=== PATIENT | female | born 1980 | race Caucasian/White ===

== ENCOUNTER 2018-11-01 09:56 | Outpatient (CLI) | payer OTHER, SELFPAY ==
[2018-11-01 11:52] LABS: Anion Gap 9.7 mmol/L (3-11); BUN 10 mg/dL (7-18); CO2 28.3 mmol/L (21.0-32.0); CREATININE 0.79 mg/dL (0.55-1.02); Calcium 9.2 mg/dL (8.5-10.1); Chloride 103 mmol/L (98-107); FREE T4 1.19 ng/dL (0.76-1.46); Glucose 85 mg/dL (70-100); Potassium 4.4 mmol/L (3.5-5.1); Sodium 141 mmol/L (136-145); TSH 1.96 uIU/mL (0.358-3.74)
== END 2018-11-01 10:16 ==
PROVIDERS: PCP Family Medicine; Visit Provider Nurse Practitioner Family
DX: E03.9 Hypothyroidism, unspecified (principal)
CPT/HCPCS: 36415; 80048; 84439; 84443

== ENCOUNTER 2019-06-15 16:19 | Emergency (ER) | payer OTHER, SELFPAY ==
[2019-06-15 16:25] VITALS: BP 145/79; PULSE 66; RESP 18; TEMP 36.4; O2SAT 100
--- NOTE | 2019-06-15 16:39 | ED.GENADUL_ITS ---
Discharge Plan Disposition Patient Disposition: HOME Condition: Stable Discharge Details Chief Complaint: Nk/Back Pain Clinical Impression: Cervical strain Primary Care Provider: Sisi Goins ED Provider: Flo Mcrae Home Meds and New Rx's Prescriptions: New cyclobenzaprine 10 mg tablet 10 mg PO TID PRNQty: 20 RF: 0 Continued minocycline 100 mg capsule 100 mg PO BID Qty: 14 RF: 3 metronidazole [MetroCream] 0.75 % cream 1 applic TP BID Qty: 45 RF: 3 levothyroxine 100 mcg tablet 100 mcg PO DAILY Qty: 90 RF: 4 Discharge Instructions Instructions: Cervical Strain (ED) Additional Instructions: You can take 1000mg tylenol and 600mg ibuprofen every 6 hours if you take a flexeril (cyclobenzaprine) do not drink alcohol or operate heavy machinery follow up as scheduled with your primary care provider Thursday if you have severe worsening pain, numbness or weakness return to the emergency department Medical Decision Making 38 yo female comes in with neck pain. She states it started Thursday after she had several falls while cross country skiing and landed on her buttocks. Denies hitting head or loc. Has pain in the left lateral neck, no fevers, weakness or numbness and has no weakness or sesation deficits on exam. She has pain in mid left neck lateral to midline, no midline tenderness of C/T/L spine. Limited rom due to pain. Suspect strain based on mechanism and location but discussed can't exclude fracture based on history and physical exam, and after discussion patient chooses to defer CT imaging at this time after discussion of risks and benefits and has capacity to make her own decisions. She has f/u with pcp on Thursday and if still having pain will discuss MRI, return precautions also given Differential Diagnosis Differential Diagnosis: strain, sprain, disc herniation, fracture HPI General Mode of arrival: ambulatory . Date/Time Provider Initiated Documentation: 06/15/19 16:19 . Limitations to Documentation: no limitations . Information obtained by: patient . History of Present Illness 38 year old F presents to the emergency department with the chief complaint of neck pain, described as moderate, and it has been constant. Rest improves symptom(s), Movement worsens symptoms . Patient notes no other symptoms.. Related Data Home Medications Medication Instructions Recorded Confirmed levothyroxine 100 mcg tablet 100 mcg PO DAILY #90 tab-cap 11/02/18 06/15/19 metronidazole 0.75 % topical cream 1 applic TP BID #45 gm 11/17/18 06/15/19 minocycline 100 mg capsule 100 mg PO BID #14 cap 11/17/18 06/15/19 cyclobenzaprine 10 mg PO TID PRN #20 tab 06/15/19 Previous Rx's Medication Instructions Recorded levothyroxine 100 mcg tablet 100 mcg PO DAILY #90 tab-cap 11/02/18 metronidazole 0.75 % topical cream 1 applic TP BID #45 gm 11/17/18 minocycline 100 mg capsule 100 mg PO BID #14 cap 11/17/18 cyclobenzaprine 10 mg PO TID PRN #20 tab 06/15/19 Allergies Allergy/AdvReac Type Severity Reaction Status Date / Time No Known Allergies Allergy Unverified 06/15/19 16:30 General Stated Complaint: Nk/Back Pain THOR: 4 Review of Systems All systems reviewed & are unremarkable except as noted in HPI and below Constitutional Constitutional: Denies chills, Denies fever(s) and Denies weakness Gastrointestinal Gastrointestinal: Denies vomiting Neurologic Neurologic: Denies weakness [facility] Surgical History (Updated 10/27/18 @ 08:46 by Beni Martins) Thyroid 5 nodules Family History Mother Personal history of malignant neoplasm UTERINE Father MS (multiple sclerosis) Sister Personal history of malignant neoplasm THYROID Brother Essential hypertension Grandmother Essential hypertension Personal history of malignant neoplasm B-CELL LYMPHOMA Social History Smoking/Tobacco Use Status: Never Alcohol Intake: current Alcohol Intake frequency: holidays/special occasions only Drug use: Never Substance use type: does not use Do you feel safe at home: Yes Do you feel safe in your relationship?: Yes Exam Const General: no acute distress Orientation: alert HENMT Head: normal to inspection Ears: external ears normal General nose exam: external nose normal Mouth: moist mucous membranes Eyes General: appearance normal, both eyes and all related structures Neck Neck: normal visual inspection Resp Effort & Inspection: normal respiratory effort and able to speak in complete sentences Cardio Rate: regular rate Neuro General: alert and oriented x3 Extrem General: normal to inspection Psych Mental Status: mental status grossly normal Course Vital Signs Vital signs: Vital Signs Temperature 36.4 C L 06/15/19 16:25 Pulse 66 06/15/19 16:25 Respiratory Rate 18 06/15/19 16:25 Blood Pressure 145/79 H 06/15/19 16:25 Pulse Oximetry 100 06/15/19 16:25 Temperature 36.4 C L 06/15/19 16:25 Temperature Source Skin 06/15/19 16:25 Pulse 66 06/15/19 16:25 Respiratory Rate 18 06/15/19 16:25 Respiratory Effort Non-Labored 06/15/19 16:29 Blood Pressure 145/79 H 06/15/19 16:25 Pulse Oximetry 100 06/15/19 16:25 Oxygen Delivery Method Room Air 06/15/19 16:25 Oxygen Flow Rate 0 06/15/19 16:25 Pain Level 3 06/15/19 16:25
== END 2019-06-15 16:45 | disposition home or self-care (01) ==
PROVIDERS: Emergency Provider Emergency Medicine; PCP Family Medicine
DX: S16.1XXA Strain of muscle, fascia and tendon at neck level, initial encounter (principal); V00.321A Fall from snow-skis, initial encounter; Y93.24 Activity, cross country skiing
CPT/HCPCS: 99283

== ENCOUNTER 2019-06-20 09:47 | Outpatient (CLI) | payer OTHER, SELFPAY ==
[2019-06-20 12:28] LABS: HCT 39.6 % (36.0-46.0); HGB 13.2 g/dL (12.0-15.5); Mean Corp. HGB Concentration 33.3 g/dL (32.0-36.0); Mean Corpuscular Hemoglobin 30.3 pg (27.0-33.0); Mean Platelet Volume 10.4 fL (8.0-11.0); Platelet Count 294 x1000/uL (130-400); RBC 4.35 m/cumm (4.00-5.20); RBC Distribution Width 12.3 % (11.7-14.6); White Blood Cell Count 5.02 k/cumm (4.4-10.8)
[2019-06-20 13:35] LABS: ALT 18 U/L (14-59); AST 14 U/L (15-37); Alkaline Phosphatase 50 U/L (46-116); Anion Gap 6.5 mmol/L (3-11); BUN 8 mg/dL (7-18); Bilirubin, Total 0.5 mg/dL (0.2-1.0); CO2 31.5 mmol/L (21.0-32.0); CREATININE 0.74 mg/dL (0.55-1.02); Calcium 8.9 mg/dL (8.5-10.1); Calculated LDL 97 mg/dL (<100); Chloride 104 mmol/L (98-107); Cholesterol 175 mg/dL (<200); Glucose 82 mg/dL (74-106); HDL Cholesterol 61 mg/dL (40-60); Iron 80 ug/dL (50-170); Potassium 3.9 mmol/L (3.5-5.1); Sodium 142 mmol/L (136-145); TSH (W/Ref FT4) 2.45 uIU/mL (0.36-3.74); Total Protein 6.9 g/dL (6.4-8.2); Triglyceride 89 mg/dL (<150)
[2019-06-20 14:47] LABS: Vitamin B12 509 pg/mL (193-986)
== END 2019-06-20 10:07 ==
PROVIDERS: PCP Family Medicine; Visit Provider Family Medicine
DX: Z00.00 Encounter for general adult medical examination without abnormal findings (principal); E03.9 Hypothyroidism, unspecified; Z13.0 Encounter for screening for diseases of the blood and blood-forming organs and certain disorders involving the immune mechanism; Z13.220 Encounter for screening for lipoid disorders
CPT/HCPCS: 36415; 80053; 80061; 85027; 82607; 83540; 84443; 84481

== ENCOUNTER 2019-06-20 12:50 | Outpatient (REF) | payer OTHER, SELFPAY ==
--- NOTE | 2019-06-20 09:00 | PAPFT_PTH ---
PATIENT: Zari Jaquez LOC: [facility] U#:[id number] AGE/SX: 38/F ROOM: RE06/20/[address]: Sisi Goins MD, DC : 1980 BED: DIS: 06/20/2019 SPEC #: [id number] RECD: 06/20/19 18:32 STATUS: CHARU REFeng #: [id number] MARY: 06/20/19 09:[address]: Sisi oGins [facility] Cytology RECD BY: Jacqueline Kim Tissues: 1 - CX/ENDOCX FOR PAP SMEARS Procedures: PAP THIN PREP/UVM Screening HPV DNA PROBE Comments: [id number]
== END 2019-06-20 13:10 ==
LOC: LBN 12:50
PROVIDERS: PCP Family Medicine; Visit Provider Family Medicine
DX: Z12.4 Encounter for screening for malignant neoplasm of cervix (principal); Z11.51 Encounter for screening for human papillomavirus (HPV)
CPT/HCPCS: 88142; 87624

== ENCOUNTER 2020-04-03 00:38 | Outpatient (CLI) | payer OTHER, SELFPAY ==
--- NOTE | 2020-04-03 08:00 | DI.MAMMO_ITS ---
EXAM: MG MAMMO SCREENING CLINICAL HISTORY: screening,Z12.39 TECHNIQUE: Bilateral full field digital CC and MLO mammographic images were obtained with 3D tomosyn thesis and utilizing computer aided detection (CAD). COMPARISON: None. FINDINGS: Masses/Architectural Distortion: None seen. Microcalcifications: No suspicious pleomorphic-type are seen. Skin Thickening/Nipple Retraction: None. IMPRESSION: 1. No specific features of malignancy noted. 2. Unless there is more urgent need, screening mammography is recommended, as per [employer] guidelines. BI-RADS Category 1 - Negative Breast Density - Category C - Heterogeneously dense The mammogram demonstrates the patient's breast tissue is dense. Dense breast tissue is very common a nd is not abnormal but dense breast tissue can make it harder to find cancer on a mammogram. Also, de nse breast tissue may increase their breast cancer risk. This information about the result of the [facility] mogram report was provided to the patient to raise their awareness. Use this report when you speak wi th the patient about their risks for breast cancer, which includes their family history. At that time , you may recommend for more screening tests (Ultrasound or MRI) as they might be useful based on the ir risk. A negative radiographic report should not delay biopsy if a dominant or clinically suspicious mass is present. Up to ten percent of cancers are not identified on mammography. A negative report may reinforce clinical impression. Adenosis and dense breasts may obscure an underlying neoplasm. False positive reports average 6 to 10%. Patient will receive a letter notifying them of these results.
== END 2020-04-03 00:58 ==
PROVIDERS: PCP Family Medicine; Visit Provider Family Medicine
DX: Z12.31 Encounter for screening mammogram for malignant neoplasm of breast (principal)
CPT/HCPCS: 77063; 77067

== ENCOUNTER 2020-04-17 02:27 | Outpatient (REF) | payer OTHER, SELFPAY ==
[2020-04-19 19:58] LABS: Patient Race White; SARS-CoV-2 RNA Undetected (Undetected); SARS-CoV-2 Specimen Source Nasal
== END 2020-04-17 02:47 ==
LOC: LBO 02:27
PROVIDERS: PCP Family Medicine; Visit Provider Nurse Practitioner Family
DX: Z11.59 Encounter for screening for other viral diseases (principal)
CPT/HCPCS: U0003

== ENCOUNTER 2020-05-23 03:05 | Outpatient (CLI) | payer OTHER, SELFPAY ==
[2020-05-23 11:12] LABS: Abs Immature Grans 0.02 10^3/uL (0.0-0.06); Absolute Basophil Count 0.02 10^3/uL (0.0-0.2); Absolute Eosinophil Count 0.01 10^3/uL (0.0-0.7); Absolute Lymphocyte Count 1.24 10^3/uL (1.2-3.4); Absolute Monocyte Count 0.53 10^3/uL (0.1-0.8); Absolute Neutrophil Count 4.77 10^3/uL (1.2-6.7); Basophils % 0.3; Eosinophils % 0.2; HCT 37.5 % (36.0-46.0); HGB 12.4 g/dL (11.2-15.7); Immature Grans % 0.3; Lymphocytes % 18.8; MCH 30.3 pg (27.0-33.0); MCHC 33.1 % (32.0-36.0); MCV 91.7 fL (80-95); Neutrophils % 72.4; Nucleated RBC 0 %; Platelet Count 229 10^3/uL (130-400); RBC 4.09 10^6/uL (3.93-5.22); RDW 11.9 % (11.7-14.6); RDW-SD 40.2 fL; WBC 6.59 10^3/uL (4.4-10.8)
[2020-05-23 12:12] LABS: ALT 24 U/L (14-59); AST 15 U/L (15-37); Alkaline Phosphatase 51 U/L (46-116); Anion Gap 7.3 mmol/L (3-11); BUN 11 mg/dL (7-18); Bilirubin, Total 0.5 mg/dL (0.2-1.0); CO2 28.7 mmol/L (21.0-32.0); CREATININE 0.97 mg/dL (0.55-1.02); Calcium 8.9 mg/dL (8.5-10.1); Chloride 102 mmol/L (98-107); Glucose 76 mg/dL (74-106); Sodium 138 mmol/L (136-145); TSH 2.22 uIU/mL (0.36-3.74); Total Protein 6.9 g/dL (6.4-8.2)
[2020-05-28 15:59] LABS: 25-Hydroxy D Total 23 ng/mL; 25-Hydroxy D2 <4.0 ng/mL; 25-Hydroxy D3 23 ng/mL
== END 2020-05-23 03:25 ==
PROVIDERS: PCP Family Medicine; Visit Provider Naturopath
DX: Z00.00 Encounter for general adult medical examination without abnormal findings (principal); D50.9 Iron deficiency anemia, unspecified; R53.83 Other fatigue; R42 Dizziness and giddiness; R51.9 Headache, unspecified; E07.9 Disorder of thyroid, unspecified; E89.0 Postprocedural hypothyroidism; E55.9 Vitamin D deficiency, unspecified
CPT/HCPCS: 36415; 80053; 82306; 84439; 84443; 84481; 85025

== ENCOUNTER 2020-10-05 17:54 | Outpatient (REF) | payer OTHER, SELFPAY ==
[2020-10-05 19:02] LABS: FREE T4 0.71 ng/dL (0.76-1.46); TSH 5.52 uIU/mL (0.36-3.74)
[2020-10-07 16:56] LABS: T3,Free 3.3 pg/mL (2.8-5.3)
== END 2020-10-05 17:55 | disposition home or self-care (01) ==
LOC: LBN 17:54
PROVIDERS: PCP Family Medicine; Visit Provider Naturopath
DX: E03.9 Hypothyroidism, unspecified (principal); R53.83 Other fatigue
CPT/HCPCS: 84439; 84443; 84481

== ENCOUNTER 2021-07-22 14:34 | Outpatient (REF) | payer OTHER, SELFPAY ==
--- OUTSIDE RECORDS SUMMARY | 2021-07-22 14:35 | XMS_ITS ---
:1980 Author Care Team Providers Name Role Phone HARMAN CHILDERS Primary Care Provider [phone] Allergies Code Code System Name Reaction Severity Status Onset NKDA ? Medications Name Status Start Date Stop Date ? ? cyclobenzaprine 10 mg tablet Active ? Not available Take 1 tablet 3 times a day by oral route. doxycycline hyclate 100 mg capsule Active ? Not available Take 1 capsule twice a day by oral route. levothyroxine 100 mcg tablet Active ? Not available Take 1 tablet every day by oral route. metronidazole 0.75 % topical cream Active ? Not available APPLY A THIN LAYER TO THE AFFECTED AREA (S) BY TOPICAL ROUTE 2 TIMES PER DAY IN THE MORNING AND EVENING Wellbutrin XL 150 mg 24 hr tablet, extended release Active ? Not available Take 1 tablet every day by oral route for 30 days. zolpidem 5 mg tablet Active ? Not availab le take 1-2 PO night of sleep study if needed Problems Name Status Onset Date Source ? Hypothyroidism Active 07/06/2019 ? Neck Pain Active 07/06/2019 ? Psychophysiologic Insomnia Active 07/07/2019 ? Multiple Sclerosis Active ? ? Fatigue Active ? ? Procedures None recorded. Results Lab Results None recorded. Past Encounters None recorded. Social History Tobacco Smoking Status Never Smoker Vaccine List None recorded. Plan of Care Reminders Provider Appointments None ? ? recorded. Lab None ? ? recorded. Referral None ? ? recorded. Procedures None ? ? recorded. Surgeries None ? ? recorded. Imaging None ? ? recorded. Vitals Height Weight BMI Blood Pressure 160.02 cm 72.57 kg 28.3 kg/m2 110/62 mm[Hg]
[2021-07-22 21:05] LABS: TSH (W/Ref FT4) 0.61 uIU/mL (0.36-3.74)
== END 2021-07-22 14:35 | disposition home or self-care (01) ==
LOC: LBN 14:34
PROVIDERS: PCP Family Medicine; Visit Provider Family Medicine
DX: E03.9 Hypothyroidism, unspecified (principal)
CPT/HCPCS: 84443

== ENCOUNTER 2022-08-11 10:06 | Outpatient (REF) | payer OTHER, SELFPAY ==
--- NOTE | 2022-08-11 09:30 | PAPFT_PTH ---
PATIENT: Zari Jaquez LOC: [facility] U#:[id number] AGE/SX: 41/F ROOM: RE08/11/[address]: Sisi Goins MD, DC : 1980 BED: DIS: 08/11/2022 SPEC #: [id number] RECD: 08/11/22 12:18 STATUS: CHARU REQ #: [id number] MARY: 08/11/22 09:[address]: Sisi Goins DEPT: [facility] Cytology RECD BY: Jacqueline Kim Tissues: 1 - CX/ENDOCX FOR PAP SMEARS Procedures: PAP THIN PREP/UVM Screening HPV DNA PROBE Comments: [id number]
== END 2022-08-11 10:07 | disposition home or self-care (01) ==
LOC: LBN 10:06
PROVIDERS: PCP Family Medicine; Visit Provider Family Medicine
DX: Z12.4 Encounter for screening for malignant neoplasm of cervix (principal); Z11.51 Encounter for screening for human papillomavirus (HPV)
CPT/HCPCS: 88142; 87624

== ENCOUNTER 2022-12-04 07:45 | Outpatient (REF) | payer OTHER, SELFPAY ==
[2022-12-04 08:29] LABS: TSH (W/Ref FT4) 3.16 uIU/mL (0.36-3.74)
== END 2022-12-04 07:46 | disposition home or self-care (01) ==
LOC: LBN 07:45
PROVIDERS: PCP Family Medicine; Visit Provider Family Medicine
DX: Z00.00 Encounter for general adult medical examination without abnormal findings (principal); E03.9 Hypothyroidism, unspecified
CPT/HCPCS: 84443

== ENCOUNTER 2023-03-06 14:53 | Outpatient (REF) | payer OTHER, SELFPAY ==
[2023-03-06 15:38] LABS: TSH (W/Ref FT4) 1.33 uIU/mL (0.36-3.74)
== END 2023-03-06 14:54 | disposition home or self-care (01) ==
LOC: LBN 14:53
PROVIDERS: PCP Family Medicine; Visit Provider Family Medicine
DX: E03.9 Hypothyroidism, unspecified (principal)
CPT/HCPCS: 84443

== ENCOUNTER 2023-05-08 08:05 | Outpatient (CLI) | payer OTHER, SELFPAY ==
[2023-05-08 07:35] LABS: Abs Immature Grans 0.01 10^3/uL (0.0-0.06); Absolute Basophil Count 0.02 10^3/uL (0.0-0.2); Absolute Eosinophil Count 0.14 10^3/uL (0.0-0.7); Absolute Lymphocyte Count 1.91 10^3/uL (1.2-3.4); Absolute Monocyte Count 0.57 10^3/uL (0.1-0.8); Absolute Neutrophil Count 3.16 10^3/uL (1.2-6.7); Basophils % 0.3; Eosinophils % 2.4; Immature Grans % 0.2; Lymphocytes % 32.9; MCH 30.4 pg (27.0-33.0); MCHC 34.2 % (32.0-36.0); MCV 89 fL (80-95); MPV 9.2 fL (8.0-11.0); Monocytes % 9.8; Neutrophils % 54.4; Platelet Count 265 10^3/uL (130-400); RBC 4.28 10^6/uL (3.93-5.22); RDW 12.5 % (11.7-14.6); RDW-SD 40.9 fL; WBC 5.81 10^3/uL (4.4-10.8)
[2023-05-08 08:14] LABS: Hemoglobin A1C 5.2 % (<5.7)
[2023-05-08 08:36] LABS: ALT 24 U/L (14-59); AST 17 U/L (15-37); Albumin 3.9 g/dL (3.4-5.0); Alkaline Phosphatase 55 U/L (46-116); Anion Gap 5.4 mmol/L (3-11); BUN 13 mg/dL (7-18); Bilirubin, Total 0.7 mg/dL (0.2-1.0); CO2 31.6 mmol/L (21.0-32.0); CREATININE 0.9 mg/dL (0.55-1.02); Calcium 9.2 mg/dL (8.5-10.1); Calculated LDL 106 mg/dL (<100); Chloride 101 mmol/L (98-107); Cholesterol 188 mg/dL (<200); Estimated GFR 80.84 (mL/min/1.73m2); Glucose 101 mg/dL (74-106); HDL Cholesterol 70 mg/dL (40-60); Potassium 3.7 mmol/L (3.5-5.1); Sodium 138 mmol/L (136-145); Total Protein 7.6 g/dL (6.4-8.2); Triglyceride 64 mg/dL (<150); Vitamin B12 567 pg/mL (193-986)
[2023-05-08 09:13] LABS: Vitamin D 25 Total 22.2 ng/mL (30-100)
[2023-05-08 21:06] LABS: FSH 7.2 mIU/mL (See Note); LH 4.1 mIU/mL (See Note)
== END 2023-05-08 08:06 | disposition home or self-care (01) ==
LOC: LBO 08:05
PROVIDERS: PCP Family Medicine; Visit Provider Nurse Practitioner Family
DX: R53.83 Other fatigue (principal)
CPT/HCPCS: 36415; 80053; 80061; 82306; 82607; 83001; 83002; 83036; 85025

== ENCOUNTER 2023-09-08 14:15 | Outpatient (CLI) | payer OTHER, SELFPAY ==
[2023-09-08 14:53] LABS: Kit/Specimen SENT
[2023-09-08 15:04] LABS: ESR 1 mm/hr (0-20)
[2023-09-08 15:05] LABS: Abs Immature Grans 0.02 10^3/uL (0.0-0.06); Absolute Basophil Count 0.03 10^3/uL (0.0-0.2); Absolute Eosinophil Count 0.07 10^3/uL (0.0-0.7); Absolute Lymphocyte Count 2.37 10^3/uL (1.2-3.4); Absolute Monocyte Count 0.57 10^3/uL (0.1-0.8); Absolute Neutrophil Count 3.68 10^3/uL (1.2-6.7); Basophils % 0.4; HCT 36.1 % (36.0-46.0); HGB 12.2 g/dL (11.2-15.7); Immature Grans % 0.3; Lymphocytes % 35.2; MCH 29.8 pg (27.0-33.0); MCHC 33.8 % (32.0-36.0); MCV 88 fL (80-95); MPV 9.7 fL (8.0-11.0); Monocytes % 8.5; Neutrophils % 54.6; Platelet Count 273 10^3/uL (130-400); RDW 12.4 % (11.7-14.6); RDW-SD 40.5 fL; WBC 6.74 10^3/uL (4.4-10.8)
[2023-09-08 15:15] LABS: Hemoglobin A1C 5.8 % (<5.7)
[2023-09-08 16:01] LABS: Ferritin 68 ng/mL (8-252); Magnesium 1.9 mg/dL (1.8-2.4)
[2023-09-08 16:04] LABS: Vitamin D 25 Total 23.4 ng/mL (30-100)
[2023-09-08 16:20] LABS: Iron 52 ug/dL (50-170); Total Iron Binding Capacity 324 ug/dL (250-450); Transferrin Sat 16 % (15-50)
[2023-09-09 09:46] LABS: Homocysteine 8.7 umol/L (5.0-13.9)
[2023-09-09 10:48] LABS: EBNA IgG Positive (Negative); EBV Interpretation (See Note); VCA IgG Positive (Negative); VCA IgM Negative (Negative)
[2023-09-10 10:06] LABS: CMV Ab, IgG Negative (Negative); CMV Ab, IgM Negative (Negative); EBV EA IgG Negative (Negative)
[2023-09-10 13:38] LABS: Zinc, S 62 mcg/dL (60-106)
[2023-09-10 15:04] LABS: Apolipoprotein A1, S 153 mg/dL (>=140); Apolipoprotein B, S 74 mg/dL (See Comment); Apolipoprotein B/A 1 ratio 0.5 (See Comment)
[2023-09-10 16:10] LABS: Lipoprotein (a) <7 nmol/L (<75)
[2023-09-11 13:17] LABS: M. pneumoniae Ab, IgG Negative (Negative); M. pneumoniae Ab, IgM Reactive (Negative)
[2023-09-11 22:21] LABS: M. pneumoniae Ab, IgM by IFA Negative (Negative)
== END 2023-09-08 14:16 | disposition home or self-care (01) ==
LOC: LBO 14:15
PROVIDERS: PCP Family Medicine; Visit Provider Naturopath
DX: Z13.220 Encounter for screening for lipoid disorders (principal); R59.0 Localized enlarged lymph nodes; E55.9 Vitamin D deficiency, unspecified; L60.9 Nail disorder, unspecified; G43.909 Migraine, unspecified, not intractable, without status migrainosus
CPT/HCPCS: 36415; 82172; 82306; 83090; 83695; 84630; 85652; 86663; 86738; 82728; 83036; 83540; 83550; 83735; 85025; 86644; 86645; 86664; 86665

== ENCOUNTER → 2023-10-14 04:30 | Outpatient (CLI) | payer OTHER, SELFPAY ==
--- NOTE | 2023-10-14 08:15 | DI.MAMMO_ITS ---
Exam(s) MAMMO SCREENING EXAM: MAMMO SCREENING CLINICAL HISTORY: screening,z12.39. TECHNIQUE: Bilateral full field digital CC and MLO mammographic images were obtained with 3D tomosyn thesis and utilizing computer aided detection (CAD). COMPARISON: Prior mammograms were reviewed. FINDINGS: There has been no significant change in the appearance and distribution of the fibroglandular tissue. There are no new spiculated masses nor malignant appearing microcalcification groups. There is no significant architectural distortion nor skin thickening-retraction. IMPRESSION: No radiographic evidence of malignancy. BI-RADS Category 1 - Negative Breast Density - Category C - Heterogeneously dense Breast density Category C or D implies that the patient has dense breast tissue. Dense breast tissue can make it harder to find cancer on a mammogram. Dense breast tissue is also associated with an incr eased risk of breast cancer. This information about the result of the mammogram report was provided to the patient to raise their awareness. Use this report when you speak with the patient about their risks for breast cancer, which includes their family history. At that time, you may recommend additional screening tests (Ultrasoun d or MRI) as these tests may add significant information. A negative radiographic report should not delay biopsy if a dominant or clinically suspicious mass is present. Up to ten percent of cancers are not identified on mammography. A negative report may reinforce clinical impression. Adenosis and dense breasts may obscure an underlying neoplasm. False positive reports average 6 to 10%. Patient will receive a letter notifying them of these results.
== END ==
PROVIDERS: PCP Family Medicine; Visit Provider Family Medicine
DX: Z12.31 Encounter for screening mammogram for malignant neoplasm of breast (principal); R92.333 Mammographic heterogeneous density, bilateral breasts
CPT/HCPCS: 77063; 77067

== ENCOUNTER 2023-11-13 11:47 | Outpatient (REF) | payer OTHER, SELFPAY ==
[2023-11-13 13:20] LABS: TSH (W/Ref FT4) 2.52 uIU/mL (0.36-3.74)
== END 2023-11-13 11:48 | disposition home or self-care (01) ==
LOC: LBN 11:47
PROVIDERS: PCP Family Medicine; Visit Provider Family Medicine
DX: E03.9 Hypothyroidism, unspecified (principal)
CPT/HCPCS: 82565; 84443

== ENCOUNTER → 2023-12-18 13:53 | Outpatient (CLI) | payer OTHER, SELFPAY ==
--- NOTE | 2023-12-18 14:34 | DI.RAD_ITS ---
Exam(s) XR HAND LT COMPLETE EXAM: XR HAND LT COMPLETE CLINICAL HISTORY: Swelling and pain at 2nd MCP joint,m79.642. TECHNIQUE: 2D digital imaging was performed. COMPARISON: No exams were available for comparison FINDINGS: 3 views No evidence fracture or dislocation. No radiopaque foreign body. There is a metallic skin marker pl aced by the technologist over the area of concern which is in the region of the head-neck of the 2nd metacarpal bone. There are no abnormal radiographic Findings at this level. Bone density normal. No osseous lesions nor erosions. IMPRESSION: No significant osseous findings in the left hand. DATA REPOSITORY: RADIATION DOSE DELIVERED:
== END ==
PROVIDERS: PCP Family Medicine; Visit Provider Physical Therapy Assistant
DX: M79.642 Pain in left hand (principal)
CPT/HCPCS: 73130

== ENCOUNTER 2024-10-04 09:10 | Outpatient (CLI) | payer OTHER, SELFPAY ==
[2024-10-04 12:26] LABS: HCT 38.9 % (36.0-46.0); HGB 13.3 g/dL (11.2-15.7); MCH 30.5 pg (27.0-33.0); MCHC 34.2 % (32.0-36.0); MCV 89 fL (80-95); MPV 10.5 fL (8.0-11.0); Platelet Count 252 10^3/uL (130-400); RBC 4.36 10^6/uL (3.93-5.22); RDW 12.6 % (11.7-14.6); RDW-SD 41.4 fL
[2024-10-04 12:47] LABS: Hemoglobin A1C 5.3 % (<5.7)
[2024-10-04 13:01] LABS: ALT 21 U/L (14-59); AST 17 U/L (15-37); Albumin 4.1 g/dL (3.4-5.0); Alkaline Phosphatase 64 U/L (46-116); Anion Gap 9.9 mmol/L (3-11); BUN 14 mg/dL (7-18); Bilirubin, Total 0.3 mg/dL (0.2-1.0); CO2 24.1 mmol/L (21.0-32.0); Calcium 9.5 mg/dL (8.5-10.1); Chloride 106 mmol/L (98-107); Glucose 104 mg/dL (74-106); Potassium 3.8 mmol/L (3.5-5.1); Sodium 140 mmol/L (136-145); TSH (W/Ref FT4) 1.71 uIU/mL (0.36-3.74); Total Protein 7.3 g/dL (6.4-8.2)
[2024-10-04 21:01] LABS: Vitamin B12 317 pg/mL (193-986); Vitamin D 25 Total 36 ng/mL (30-100)
== END 2024-10-04 09:11 | disposition home or self-care (01) ==
PROVIDERS: PCP Family Medicine; Referring Provider Family Medicine; Visit Provider Family Medicine
DX: E03.9 Hypothyroidism, unspecified (principal); Z00.00 Encounter for general adult medical examination without abnormal findings; G35 Multiple sclerosis; E55.9 Vitamin D deficiency, unspecified
CPT/HCPCS: 36415; 80053; 82306; 85027; 82607; 83036; 84443

== ENCOUNTER 2024-10-28 00:44 | Outpatient (CLI) | payer OTHER, SELFPAY ==
--- NOTE | 2024-10-28 07:45 | DI.MAMMO_ITS ---
Exam(s) MAMMO SCREENING EXAM: MAMMO SCREENING CLINICAL HISTORY: screening,z12.39. TECHNIQUE: Bilateral full field digital CC and MLO mammographic images were obtained with 3D tomosyn thesis and utilizing computer aided detection (CAD). COMPARISON: Prior mammograms were reviewed. FINDINGS: There has been no significant change in the appearance and distribution of the fibroglandular tissue. Asymmetric density posteriorly in the left breast on the MLO view is unchanged from 2020 and therefor e benign. There are no new spiculated masses nor new malignant appearing microcalcification groups. There is no significant architectural distortion nor skin thickening-retraction. IMPRESSION: Stable benign-appearing findings. No radiographic evidence of malignancy. BI-RADS Category 2 - Benign Findings Breast Density - Category C - The breast are heterogeneously dense, which may obscure small masses. Breast density Category C or D implies that the patient has dense breast tissue. Dense breast tissue can make it harder to find cancer on a mammogram. Dense breast tissue is also associated with an incr eased risk of breast cancer. This information about the result of the mammogram report was provided to the patient to raise their awareness. Use this report when you speak with the patient about their risks for breast cancer, which includes their family history. At that time, you may recommend additional screening tests (Ultrasoun d or MRI) as these tests may add significant information. A negative radiographic report should not delay biopsy if a dominant or clinically suspicious mass is present. Up to ten percent of cancers are not identified on mammography. A negative report may reinforce clinical impression. Adenosis and dense breasts may obscure an underlying neoplasm. False positive reports average 6 to 10%. Patient will receive a letter notifying them of these results.
--- NOTE | 2024-10-28 07:45 | DI.MRI_ITS ---
Exam(s) MR BRAIN WO EXAM: MR BRAIN WO CLINICAL HISTORY: multiple sclerosis,g35 TECHNIQUE: Multiplanar multisequence MRI of the brain was performed. COMPARISON: MR Pain fMRI from 03/12/2016 FINDINGS: VENTRICLES AND EXTRA AXIAL SPACES: Normal in size and morphology for the patient's age. MIDLINE SHIFT: None. CEREBRAL PARENCHYMA: No focus of restricted diffusion to suggest acute infarct. No space-occupying le maryan identified. Since the prior examination there are no new white matter lesions present. Several of the lesions seen on the previous examination are less conspicuous than on the current examination. HEMORRHAGE: None. BRAINSTEM/CEREBELLUM: Normal. CALVARIUM: Normal. VISUALIZED PARANASAL SINUSES/MASTOIDS:Clear. [place]: Normal flow void. PIT[place]ARY GLAND: Unremarkable. OTHER FINDINGS: None. IMPRESSION: No new white matter lesions since 10/04/2019. Several of the lesions previously seen are less conspic uous on the current examination. DATA REPOSITORY:
== END 2024-10-28 01:04 ==
LOC: DI 00:44
PROVIDERS: PCP Family Medicine; Visit Provider Family Medicine
DX: Z12.31 Encounter for screening mammogram for malignant neoplasm of breast (principal); G35 Multiple sclerosis
CPT/HCPCS: 77063; 77067; 70551

== ENCOUNTER → 2025-03-29 12:13 | Outpatient (CLI) | payer OTHER, SELFPAY ==
[2025-03-29] MEDS: Barium Sulfate 2% W/V-Creamy Vanilla Smoothie 450 ML BTL PO ×2 (13:07→13:08)
[2025-03-29] MEDS: Normal Saline - Diluent 50 ML VIAL IJ (15:18)
[2025-03-29] MEDS: Normal Saline Flush 10 ML SYR IVP (15:19)
[2025-03-29] MEDS: Omnipaque 350 MG/ML 100 ML BTL IJ (15:19)
--- NOTE | 2025-03-29 15:27 | DI.CT_ITS ---
Exam(s) CT ABDOMEN PELVIS W EXAM: CT ABDOMEN PELVIS W CLINICAL HISTORY: R10.31,R10.32 RT LT severe lower abd pain TECHNIQUE: Imaging Protocol: Axial computed tomography images with coronal and sagittal reformatted images were created and reviewed. CONTRAST MATERIAL: Intravenous: Omnipaque 350 Contrast volume:75 mL Oral: Yes COMPARISON: No exams were available for comparison FINDINGS: ABDOMEN: Lung Bases: No acute abnormality. Liver: Normal density. No measurable mass. Portal, Superior Mesenteric, and Splenic Veins: Unremarkable. Gallbladder and Biliary Tract: No radiodense calculus or dilation. Pancreas: Normal density, no abnormal calcifications or inflammatory process. Spleen: Normal. Adrenals: No masses seen. Kidneys: Normal size, contour and axis. No radiodense stones or obstructive uropathy. No masses seen. Abdominal Aorta: Abdominal portion non-dilated. Bowel: There is bowel wall thickening seen in the proximal sigmoid colon with surrounding inflammation consistent with colitis. There is no evidence of bowel obstruction. Appendix is unremarkable. Peritoneal Cavity: There is a small amount of fluid in the cul-de-sac which may be physiologic. No free air. Lymph Nodes: Within normal limits. Bones: Within normal limits for the patient's age. Soft Tissues: Unremarkable. PELVIS: Bladder: Symmetric distention, no gross wall thickening. Reproductive Organs: There is a 2 cm left ovarian cyst which is likely physiologic. Lymph Nodes: Within normal limits. Bones: Within normal limits for the patient's age. IMPRESSION: 1. Bowel wall thickening and pericolonic inflammation in the proximal sigmoid colon consistent with a colitis which may reflect be inflammatory or infectious. 2. There is no pneumoperitoneum or abscess. Unexpected findings RADIATION DOSE DELIVERED: 503.31mGy.cm Total DLP DATA REPOSITORY: All CT scans at this facility are submitted to the National Radiology Data Registry (NRDR) Dose Index Registry (DIR) with the [employer] ([employer]). RADIATION OPTIMIZATION: All CT scans at this facility use at least one of these dose optimization techniques: automated exposure control; mA and/or kV adjustment per patient size (includes targeted exams where dose is matched to clinical indication); or iterative reconstruction.
== END ==
LOC: DI 12:13
PROVIDERS: PCP Family Medicine; Visit Provider Surgery
DX: R10.31 Right lower quadrant pain (principal); R10.32 Left lower quadrant pain
CPT/HCPCS: 74177; J3490

== ENCOUNTER 2025-03-29 12:15 | Outpatient (CLI) | payer OTHER, SELFPAY ==
[2025-03-29 09:35] LABS: Abs Immature Grans 0.04 10^3/uL (0.0-0.06); HCT 40.6 % (36.0-46.0); HGB 13.5 g/dL (11.2-15.7); Immature Grans % 0.4 %; MCH 29.9 pg (27.0-33.0); MCHC 33.3 % (32.0-36.0); MCV 90 fL (80-95); MPV 9.2 fL (8.0-11.0); Platelet Count 270 10^3/uL (130-400); RBC 4.51 10^6/uL (3.93-5.22); RDW 12.4 % (11.7-14.6); RDW-SD 41.1 fL; WBC 11.06 10^3/uL (4.4-10.8)
[2025-03-29 09:40] LABS: ESR 9 mm/hr (0-20)
[2025-03-29 10:16] LABS: Glucose Negative (Negative)
[2025-03-29 10:27] LABS: C & S Indicated? No; HCG Qual (Urine) Negative; WBC Negative HPF (0-5)
[2025-03-29 10:50] LABS: ALT 26 U/L (14-59); AST 15 U/L (15-37); Albumin 4.0 g/dL (3.4-5.0); Alkaline Phosphatase 50 U/L (46-116); Anion Gap 9.8 mmol/L (3-11); BUN 8 mg/dL (7-18); Bilirubin, Total 1.3 mg/dL (0.2-1.0); CO2 28.2 mmol/L (21.0-32.0); Calcium 9.1 mg/dL (8.5-10.1); Chloride 100 mmol/L (98-107); Glucose 99 mg/dL (74-106); Potassium 3.3 mmol/L (3.5-5.1); Sodium 138 mmol/L (136-145); Total Protein 8.0 g/dL (6.4-8.2)
[2025-03-29 11:03] LABS: C-Reactive Protein 8.82 mg/dL (<or=0.5); Lipase 18 U/L (<78)
== END 2025-03-29 12:16 | disposition home or self-care (01) ==
LOC: LBO 12:15
PROVIDERS: PCP Family Medicine; Visit Provider Surgery
DX: R10.31 Right lower quadrant pain (principal); R10.32 Left lower quadrant pain
CPT/HCPCS: 36415; 80053; 83690; 85652; 81003; 81015; 81025; 85025; 86140

== ENCOUNTER 2025-04-05 14:56 | Outpatient (CLI) | payer OTHER, SELFPAY ==
[2025-04-05 15:29] LABS: Abs Immature Grans 0.01 10^3/uL (0.0-0.06); HCT 37.2 % (36.0-46.0); HGB 12.6 g/dL (11.2-15.7); Immature Grans % 0.2 %; MCH 29.7 pg (27.0-33.0); MCHC 33.9 % (32.0-36.0); MCV 88 fL (80-95); MPV 9.2 fL (8.0-11.0); Platelet Count 304 10^3/uL (130-400); RBC 4.24 10^6/uL (3.93-5.22); RDW 12.2 % (11.7-14.6); RDW-SD 39.4 fL; WBC 5.87 10^3/uL (4.4-10.8)
[2025-04-05 16:28] LABS: ALT 18 U/L (10-49); AST 23 U/L (<34); Albumin 4.5 g/dL (3.4-5.0); Alkaline Phosphatase 47 U/L (46-116); Anion Gap 9.4 mmol/L (3-11); BUN 12 mg/dL (9-23); Bilirubin, Total 0.40 mg/dL (0.2-1.2); CO2 28.6 mmol/L (20.0-31.0); Calcium 8.8 mg/dL (8.3-10.6); Chloride 103 mmol/L (98-107); Glucose 86 mg/dL (74-106); Potassium 4.0 mmol/L (3.5-5.1); Sodium 141 mmol/L (136-145); Total Protein 7.1 g/dL (5.7-8.2)
[2025-04-05 19:11] LABS: C-Reactive Protein < 0.50 mg/dL (<=0.50)
== END 2025-04-05 14:57 | disposition home or self-care (01) ==
LOC: LBO 14:56
PROVIDERS: PCP Family Medicine; Visit Provider Surgery
DX: K52.9 Noninfective gastroenteritis and colitis, unspecified (principal)
CPT/HCPCS: 36415; 80053; 85025; 86140

== ENCOUNTER 2025-04-11 15:33 | Outpatient (CLI) | payer OTHER, SELFPAY ==
[2025-04-11 15:54] LABS: Kit/Specimen SENT
[2025-04-11 16:20] LABS: Abs Immature Grans 0.01 10^3/uL (0.0-0.06); HCT 36.6 % (36.0-46.0); HGB 12.6 g/dL (11.2-15.7); Immature Grans % 0.1 %; MCH 30.1 pg (27.0-33.0); MCHC 34.4 % (32.0-36.0); MCV 87 fL (80-95); MPV 9.7 fL (8.0-11.0); Platelet Count 287 10^3/uL (130-400); RBC 4.19 10^6/uL (3.93-5.22); RDW 12.2 % (11.7-14.6); RDW-SD 39.3 fL; WBC 6.70 10^3/uL (4.4-10.8)
[2025-04-11 16:57] LABS: Anion Gap 8.3 mmol/L (3-11); CO2 25.7 mmol/L (20.0-31.0); Chloride 108 mmol/L (98-107); Potassium 3.9 mmol/L (3.5-5.1); Sodium 142 mmol/L (136-145)
[2025-04-11 17:02] LABS: Magnesium 1.9 mg/dL (1.6-2.6)
[2025-04-11 17:04] LABS: Iron 41 ug/dL (50-170); Total Iron Binding Capacity 282 ug/dL (250-425); Transferrin Sat 15 % (15-50)
[2025-04-11 17:08] LABS: TSH 0.58 uIU/mL (0.55-4.78); Vitamin B12 520 pg/mL (211-911)
[2025-04-11 17:09] LABS: Ferritin 55 ng/mL (7-271); Folate 20.3 ng/mL (>5.38)
[2025-04-12 17:37] LABS: T3,Free 3.7 pg/mL (2.8-5.3)
== END 2025-04-11 15:34 | disposition home or self-care (01) ==
LOC: LBO 15:34
PROVIDERS: PCP Family Medicine; Visit Provider Naturopath
DX: R25.2 Cramp and spasm (principal); E03.9 Hypothyroidism, unspecified
CPT/HCPCS: 36415; 80051; 82607; 82728; 82746; 83540; 83550; 83735; 84439; 84443; 84481; 85025

== ENCOUNTER 2025-04-17 03:52 | Emergency (ER) | payer OTHER, SELFPAY ==
--- NOTE | 2025-04-17 03:45 | RT.EKG_ITS ---
APPROVED REPORT Exam: Resting ECG Reason for Exam: Resp symptoms Patient Location: E HR:79 bpm ECG Measurements Heart Rate 79 AXIS UT 135 P 63 QRSd 99 QRS -11 QT 372 T -12 QTc 428 Conclusion Sinus rhythm...normal P axis, V-rate 60- 99 Inferior infarct, age indeterminate...Q>35mS, T neg, II III aVF Normal [place]/Interval No acute ST changes Baseline wander lateral precordial leads
[2025-04-17 03:54] VITALS: BP 135/77; PULSE 85; RESP 18; TEMP 37.3; O2SAT 98
--- NOTE | 2025-04-17 03:55 | W.ED.GENAD ---
Discharge Plan Disposition Patient Disposition: Home Condition: Good Discharge Details Clinical Impression: Viral URI Primary Care Provider: Sisi Goins ED Provider: Derick Claire Meds and New Rx's Prescriptions: New benzonatate 100 mg capsule 100 mg PO TID PRN (Reason: cough) Qty: 15 0RF Continued ergocalciferol (vitamin D2) 1,250 mcg (50,000 unit) capsule 50,000 unit PO .twice weekly Qty: 26 4RF levothyroxine 112 mcg tablet 112 mcg PO DAILY Qty: 90 5RF Discharge Instructions Instructions: Upper Respiratory Infection ED Additional Instructions: You were seen in the ED for cough and chest tightness. Your exam, EKG, chest x-ray are all reassuring. There is no evidence of pneumonia on x-ray. Since you did not improve with the neb treatment it is unlikely that an inhaler would help. I have prescribed benzonatate to help with your cough. Continue to stay hydrated. Follow-up with primary care next week if you are not improved. Return to ED for increased difficulty breathing, chest pain, abdominal pain, persistent vomiting, other concerns. Stand Alone Forms: Portal Information Referrals: Sisi Goins MD, DC [Primary Care Provider, Medicine] [facility] General Mode of arrival: ambulatory. Date/Time Provider Initiated Documentation: 04/17/25 03:55. Limitations to Documentation: no limitations. Information obtained by: patient and RN notes reviewed. HPI Narrative: Patient presents to the complaint of sore throat, cough, chest tightness with initial symptoms starting Thursday of last week. She has had low-grade fever but nothing greater than 100F. Cough seems to be worse at night. Somewhat productive of yellow sputum. Has no history of asthma or smoking. Denies chest pain but describes chest tightness. Has had a couple days of diarrhea but no abdominal pain or vomiting. Has not really improving over the last 5 days and came to ED for evaluation. Related Data Home Medications Medication Instructions Recorded Confirmed ergocalciferol (vitamin D2) 1,250 50,000 unit PO .twice weekly #26 09/10/23 04/17/25 mcg (50,000 unit) capsule caps levothyroxine 112 mcg tablet 112 mcg PO DAILY #90 tabs 04/05/25 04/17/25 benzonatate 100 mg capsule 100 mg PO TID PRN cough #15 caps 04/17/25 Previous Rx's Medication Instructions Recorded ergocalciferol (vitamin D2) 1,250 50,000 unit PO .twice weekly #26 09/10/23 mcg (50,000 unit) capsule caps levothyroxine 112 mcg tablet 112 mcg PO DAILY #90 tabs 04/05/25 benzonatate 100 mg capsule 100 mg PO TID PRN cough #15 caps 04/17/25 Allergies Allergy/AdvReac Type Severity Reaction Status Date / Time No Known Allergies Allergy Verified 10/04/24 08:25 General THOR: 4 Exam Narrative Exam Narrative: Const: WDWN female in NAD. VS per triage. HEENT: NC/AT. Normal facial exam. OP with minimal erythema, no tonsillar enlargement, slight exudate on the left tonsil, no ulcerations. Neck: Supple. Trachea midline. No adenopathy. Lungs: Normal respiratory effort. Lungs are clear. Cor: RRR without murmur. Good radial pulses. Neuro: A+O x 3. Normal speech, mentation, gait. Cranial nerves II - XII grossly intact. No gross motor or sensory deficit. Medical Decision Making Patient presenting to the ED with URI type symptoms for the last 5 days with associated chest tightness. Her cough seems bronchitic. She does not have wheeze but the tightness and nature of the cough suggest reactive airway so we will try a DuoNeb. Her vital signs and pulse ox are normal. An EKG obtained from triage shows sinus rhythm with no acute ST changes. I do not suspect this is cardiac in nature. Rapid strep and Fluvid have been obtained and sent. Will obtain chest x-ray after her DuoNeb treatment. 06:00 - Patient did not feel any different after DuoNeb. Rapid strep and Fluvid are both negative. Chest x-ray per my read and preliminary radiology read with no acute process. Symptoms consistent with viral URI. No improvement after DuoNeb. Will prescribe benzonatate for cough. Encouraged rest and hydration. Follow-up primary care next week if not improving. Return precautions provided. Lab Data Lab results reviewed: Yes I reviewed the patient's lab results. Lab results narrative: see [facility] ECG Data Attestation: I personally reviewed and interpreted this ECG (s) as follows: Prior ECG tracings: not available for review Interpretation: see MDM/EKG [facility] All Active Problems (Updated 04/17/25 @ 05:58 by Derick Claire MD) Viral URI (Acute) Colitis (Acute) Abdominal pain, bilateral lower quadrant (Acute) Vitamin D deficiency (Acute) Lymphadenitis, chronic (Acute) Alteration in blood glucose level (Acute) Fatigue (Acute) Hypothyroidism (Chronic) 5 nodules-opted to have thyroid removed; sis w/ cancer of the thyroid Lumbago (Acute) Encounter for screening for other viral diseases (Acute) Neck pain (Acute) C6-7 disc protrusion by MRI Depression (Acute 06/29/07) Rash (Acute) Multiple sclerosis (Acute 04/23/01) [facility]; [facility] [place]; [place] 05/2006 stable; Cervical spine-new definite plaques; 02/2007-left parietal subcortical lesion Medical History Abdominal pain Abnormal Pap smear of cervix (04/23/03) [facility]GS[facility]-referred to [facility]; [facility] [place]; [id number] Knee pain (08/23/15) 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) Pneumonia Post-traumatic osteoarthritis of left knee (04/29/17) Proteinuria intermittent Surgical History Status post thyroidectomy Thyroid 5 nodules Family History Mother Uterine cancer Father MS (multiple sclerosis) Sister Thyroid cancer Brother Essential hypertension Maternal Grandmother Essential hypertension B-cell lymphoma Social History Smoking/Tobacco Use Status: Never Second Hand Exposure: No Smoking risk assessment performed?: Yes Alcohol Intake: current Alcohol Intake frequency: holidays/special occasions only Drug use: Never Substance use type: does not use Caregiver/Support person: No Household members: significant other Housing: house Communication Needs: None Do you need help understanding health information?: Never Pets and animals: Yes Pets and animals: dog(s) Sexually active: Yes Do you think of yourself as: straight/heterosexual Current gender identity: female What is your relationship status?: living with partner Panel score (0-1 are the most socially isolated patients): 1 What type of physical activity do you participate in: walking and aerobic Frequency: 3-4 times per week Seatbelt use: always Helmet use: Yes Helmet use: always 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
[2025-04-17 03:58] VITALS: BP 135/77; PULSE 85; RESP 18; TEMP 37.3; O2SAT 98
--- NOTE | 2025-04-17 04:15 | DI.RAD_ITS ---
Exam(s) XR CHEST 2V PA LATERAL EXAM: XR CHEST 2V PA LATERAL CLINICAL HISTORY: cough, chest tightness TECHNIQUE: 2D digital imaging was performed of the chest. Two images were obtained. PA and lateral views were obtained. COMPARISON: No exams were available for comparison FINDINGS: MEDIASTINUM: Normal. HEART: Normal. PULMONARY VASCULATURE: Normal. LUNGS: Clear. PLEURAL SPACE: No pleural effusion or pneumothorax. BONE:Within normal limits for the patient's age. OTHER FINDINGS:Normal. IMPRESSION: 1. No acute pulmonary findings. 2. The preliminary [facility] report was reviewed. DATA REPOSITORY: RADIATION DOSE DELIVERED:
[2025-04-17 04:20] VITALS: O2SAT 97
[2025-04-17] MEDS: Albuterol/Ipratropium 3 ML UPD VIAL UPD (04:20)
[2025-04-17 04:44] LABS: COVID-19 PCR Negative (Negative); RSV PCR Negative (Negative)
--- NOTE | 2025-04-17 05:54 | DI.[facility]_ITS ---
PROCEDURE INFORMATION: Exam: XR Chest Exam date and time: 04/17/2025 5:10 AM Age: 44 years old Clinical indication: Cough, chest tightness TECHNIQUE: Imaging protocol: Radiologic exam of the chest. Views: 2 views. COMPARISON: CT ABDOMEN PELVIS W 03/29/2025 3:19 PM FINDINGS: Lungs: Unremarkable. No consolidation. Pleural spaces: Unremarkable. No pleural effusion. No pneumothorax. Heart/Mediastinum: Unremarkable. No cardiomegaly. Bones/joints: Unremarkable. IMPRESSION: No acute findings. Dictated and Authenticated by: Beni Ivy MD. Orderin Dakotah Sepulveda MD
[2025-04-17 06:07] VITALS: BP 119/46; PULSE 81; RESP 16; TEMP 37.1; O2SAT 97
== END 2025-04-17 06:07 | disposition home or self-care (01) ==
PROVIDERS: Emergency Provider Emergency Medicine; PCP Family Medicine
DX: J06.9 Acute upper respiratory infection, unspecified (principal)
CPT/HCPCS: 99284 ×2; 94640; 87880; 87637; 93005; 71046; 87081; 93010; J7620